=== PATIENT | male | born 1945 | race Caucasian/White ===

== ENCOUNTER 2017-09-02 16:57 | Emergency (ER) | payer OTHER, BC ==
[~2017-09-02] VITALS: Ht 188 cm; Wt 104.3 kg
[~2017-09-02 16:57] MED LIST: AMBIEN 10 MG TA10 MG PO; CLARINEX-D 121 EACH PO; CLARINEX-D 241 EACH PO; COLACE100 MG PO; FISH OIL 1,001000 M2 PO; HYDROCODONE-AP1 EAC6 PO; IBUPROFEN 600600 M1 PO; LEXAPRO20 MG PO; NORCO 5-325 TA1 EACH PO; REQUIP 0.25 M0.25 M1 PO; VALIUM5 MG PO; VITAMIN D1000 UNI1 PO; [UNRECOGNIZED DRUG - OTHER]
[2017-09-02 17:47] LABS: URINE BILIRUBIN NEGATIVE (Negative); URINE BLOOD NEGATIVE (Negative); URINE CLARITY CLEAR; URINE COLOR YELLOW; URINE GLUCOSE-RANDOM* NEGATIVE (Negative); URINE KETONES NEGATIVE (Negative); URINE LEUKOCYTES NEGATIVE (Negative); URINE NITRITE NEGATIVE (Negative); URINE PROTEIN (DIPSTICK) NEGATIVE (Negative); URINE SPECIFIC GRAVITY >= 1.030 (1.005-1.035); URINE UROBILINOGEN 0.2 E.U./dl (0.2-1.0)
[2017-09-02] MEDS ORDERED: BACTRIM DS TAB1 EACH PO (18:05)
[2017-09-02 18:15] VITALS: BP 122/62
[2017-09-02] MEDS ORDERED: BUPROPION HCL150 MG PO (18:20)
[2017-09-02] MEDS ORDERED: ATORVASTATIN CA40 MG PO (18:20)
== END 2017-09-02 18:42 | disposition home or self-care (01) ==
LOC: ER 16:57
PROVIDERS: Physician Assistant
DX: L03.314 Cellulitis of groin (principal); G25.81 Restless legs syndrome; Z90.49 Acquired absence of other specified parts of digestive tract

== ENCOUNTER 2017-09-05 09:44 | Emergency (ER) | payer OTHER, BC ==
[~2017-09-05] VITALS: Ht 188 cm; Wt 108.9 kg
[~2017-09-05 09:44] MED LIST changes: +ATORVASTATIN CA40 MG PO; +BACTRIM DS TAB1 EACH PO; +BUPROPION HCL150 MG PO
[2017-09-05] MEDS ORDERED: CLEOCIN HCL150 MG PO (10:06)
[2017-09-05] MEDS ORDERED: HYDROCODONE-AP1 EAC6 PO (10:30)
[2017-09-05 10:39] VITALS: BP 132/52
== END 2017-09-05 10:45 | disposition home or self-care (01) ==
LOC: ER 09:44
DX: L02.214 Cutaneous abscess of groin (principal); G25.81 Restless legs syndrome; Z90.49 Acquired absence of other specified parts of digestive tract